=== PATIENT | male | born 1945 | race Caucasian/White ===

== ENCOUNTER 2017-02-21 15:10 | Outpatient (CLI) | payer SELFPAY ==
--- NOTE | 2017-02-21 15:56 | DIAGNOSTIC IMAGING REPORT ---
PROCEDURE: CT THORAX ABD PELVIS W/CONT INDICATION: Hemoptysis. Cough. Right lung mass/cavity. Smoking history. TECHNIQUE: 125 ml of Isovue 300 injected intravenously and axial images were obtained of the entire thorax, abdomen, and pelvis with sagittal and coronal reformations. COMPARISON: Comparison made to chest x-ray from [facility] earlier in the day (02/21/2017). FINDINGS: THORAX: There is a 5.2 x 5.0 cm cavitary lung mass with fluid level in the right middle lobe, associated with moderate surrounding parenchymal edema. Right lung is otherwise clear. Left lung is clear. Heart and mediastinum are of normal size. Mildly prominent mediastinal lymph nodes with normal internal architecture. Moderate degenerative changes of the thoracic spine. ABDOMEN: Gallbladder, liver, spleen, pancreas, adrenal glands, and aorta (moderate calcified atheromatous changes) are normal. There are bilateral simple renal cyst (right 1.9 cm, left 1.5 cm). Kidneys are otherwise normal. Bowel pattern is normal. Mild to moderate degenerative changes of the lumbar spine. PELVIS: Mild to moderate sigmoid diverticulosis. Prostate is of normal size (5.0 cm) with dystrophic calcifications. Pelvic structures are otherwise normal. There is a 1.9 cm sclerotic area in the left medial ileum with central lucency. IMPRESSION: 1. There is a 5.2 x 5.0 cm cavity lung mass in the right middle lobe. Etiology is not entirely clear. Consider lung neoplasm or lung abscess (e.g., bacterial, tuberculosis, fungus). 2. Mild reactive mediastinal lymph nodes. 3. Negative CT abdomen. 4. Moderate sigmoid diverticulosis. 5. Moderate enlargement prostate (5 cm). 6. There is a 1.9 cm sclerotic lesion with central lucency in the medial ileum which is most likely degenerative. Neoplastic or infectious process is less likely. 7. Findings discussed with Dr. Ilda Castellano. All CT scans at this facility use dose modulation, iterative reconstruction, and/or weight-based dosing when appropriate to reduce radiation dose to as low as reasonably achievable.
== END 2017-02-21 23:00 ==
LOC: CT SRH 15:10
DX: R04.2 Hemoptysis (principal); R91.8 Other nonspecific abnormal finding of lung field; K57.30 Diverticulosis of large intestine without perforation or abscess without bleeding; K63.9 Disease of intestine, unspecified; N40.0 Benign prostatic hyperplasia without lower urinary tract symptoms; Z87.891 Personal history of nicotine dependence